=== PATIENT | male | born 1985 | race Caucasian/White ===

== ENCOUNTER 2018-06-10 15:12 | Emergency (ER) | payer OTHER ==
[2018-06-10] MEDS: morphine 4 MG/ML VIAL IV (17:19)
[2018-06-10] MEDS: ONDANSETRON 4 MG INJ IV (17:19)
[2018-06-10 17:25] LABS: ADD MAN DIFF? NO
[2018-06-10 17:26] LABS: BASOPHILS % 0.7 % (0.0-2.0); EOSINOPHILS # 0.1 10^3/ul (0.0-0.5); EOSINOPHILS % 1.6 % (0.0-7.0); HEMATOCRIT 41.9 % (42.0-52.0); HEMOGLOBIN 14.5 g/dl (14.0-18.0); LYMPHOCYTES # 1.5 10^3/ul (0.8-2.9); LYMPHOCYTES % 32.3 % (15.0-51.0); MEAN CORPUSCULAR HEMOGLOBIN 30.9 pg (29.0-33.0); MEAN CORPUSCULAR HGB CONC 34.6 g/dl (32.0-37.0); MEAN CORPUSCULAR VOLUME 89.1 fl (82.0-101.0); MEAN PLATELET VOLUME 9.5 fl (7.4-10.4); MONOCYTE # 0.4 10^3/ul (0.3-0.9); MONOCYTES % 7.8 % (0.0-11.0); NEUTROPHIL # 2.6 10^3/ul (1.6-7.5); NEUTROPHILS % 57.4 % (39.0-77.0); PLATELET COUNT 239 10^3/UL (140-415); RED CELL DISTRIBUTION WIDTH 12.9 % (11.5-14.5)
[2018-06-10 17:26] LABS: WHITE BLOOD COUNT 4.5 10^3/ul (4.8-10.8)
[2018-06-10 17:46] LABS: ADD UMIC NO; ALANINE AMINOTRANSFERASE 11 IU/L (13-69); ALBUMIN 4.9 g/dl (3.3-4.9); ALBUMIN/GLOBULIN RATIO 1.75; ALKALINE PHOSPHATASE 46 IU/L (42-121); ANION GAP 13 (5-13); ASPARTATE AMINO TRANSFERASE 20 IU/L (15-46); BLOOD UREA NITROGEN 14 mg/dl (7-20); CALCIUM 9.8 mg/dl (8.4-10.2); CARBON DIOXIDE 29 mmol/L (21-31); CHLORIDE 102 mmol/L (97-110); CREATININE 0.91 mg/dl (0.61-1.24); Estimated GFR > 60 mL/min (>60); GLUCOSE 80 mg/dl (70-220); POTASSIUM 3.9 mmol/L (3.5-5.1); SODIUM 144 mmol/L (135-144); TOTAL PROTEIN 7.7 g/dl (6.1-8.1); UR ASCORBIC ACID 40 mg/dL (NEGATIVE); UR BILIRUBIN (Dip) NEGATIVE (NEGATIVE); UR BLOOD (Dip) NEGATIVE (NEGATIVE); UR CLARITY CLEAR (CLEAR); UR COLOR YELLOW (YELLOW); UR GLUCOSE (Dip) NEGATIVE (NEGATIVE); UR KETONES (Dip) TRACE mg/dL (NEGATIVE); UR LEUKOCYTE ESTERASE (Dip) NEGATIVE Leu/ul (NEGATIVE); UR NITRITE (Dip) NEGATIVE (NEGATIVE); UR SPECIFIC GRAVITY (Dip) 1.021 (1.003-1.030); UR TOTAL PROTEIN (Dip) NEGATIVE (NEGATIVE); UR UROBILINOGEN (Dip) NEGATIVE (NEGATIVE)
[2018-06-10] MEDS: IOHEXOL 300MG/ML 150 ML BTL (18:44)
[2018-06-10] MEDS: SOD CHLORIDE 0.9% 100 ML (18:44)
== END 2018-06-10 19:23 | disposition home or self-care (01) ==
LOC: FTE 19:23
DX: K40.90 Unilateral inguinal hernia, without obstruction or gangrene, not specified as recurrent (principal); I10 Essential (primary) hypertension
CPT/HCPCS: 74177; 76870; 80053; 81003; 85025; 96374; 96375; 99285-25

== ENCOUNTER 2018-06-18 08:13 | Day surgery (SDC) | payer OTHER ==
[2018-06-18] MEDS: SOD CHLORIDE 0.9% 1,000 ML IV (09:00)
[2018-06-18] MEDS: CLINDAMYCIN 600 MG/D5W (PMX) 50 ML IVPB (09:00)
[2018-06-18 09:33] LABS: ADD MAN DIFF? NO
[2018-06-18 09:35] LABS: BASOPHIL # 0.1 10^3/ul (0.0-0.1); EOSINOPHILS # 0.1 10^3/ul (0.0-0.5); EOSINOPHILS % 2.9 % (0.0-7.0); HEMATOCRIT 43.2 % (42.0-52.0); LYMPHOCYTES # 1.7 10^3/ul (0.8-2.9); LYMPHOCYTES % 33.7 % (15.0-51.0); MEAN CORPUSCULAR HGB CONC 34.7 g/dl (32.0-37.0); MEAN CORPUSCULAR VOLUME 89.3 fl (82.0-101.0); MEAN PLATELET VOLUME 9.8 fl (7.4-10.4); MONOCYTE # 0.5 10^3/ul (0.3-0.9); MONOCYTES % 9.2 % (0.0-11.0); NEUTROPHIL # 2.6 10^3/ul (1.6-7.5); PLATELET COUNT 228 10^3/UL (140-415); RED BLOOD COUNT 4.84 10^6/ul (4.70-6.10); RED CELL DISTRIBUTION WIDTH 12.7 % (11.5-14.5)
[2018-06-18 09:35] LABS: WHITE BLOOD COUNT 4.9 10^3/ul (4.8-10.8)
[2018-06-18 09:55] LABS: INR 1.01; PROTIME 13.4 Sec (11.9-14.9)
[2018-06-18 09:56] LABS: PARTIAL THROMBOPLASTIN TIME 29.7 Sec (23.0-35.0)
[2018-06-18 09:57] LABS: ALANINE AMINOTRANSFERASE 13 IU/L (13-69); ALBUMIN/GLOBULIN RATIO 1.66; ALKALINE PHOSPHATASE 52 IU/L (42-121); ANION GAP 8 (5-13); ASPARTATE AMINO TRANSFERASE 21 IU/L (15-46); BILIRUBIN,INDIRECT 2.9 mg/dl (0-1.1); BILIRUBIN,TOTAL 2.9 mg/dl (0.2-1.3); BLOOD UREA NITROGEN 18 mg/dl (7-20); CARBON DIOXIDE 29 mmol/L (21-31); CHLORIDE 104 mmol/L (97-110); CREATININE 1.03 mg/dl (0.61-1.24); Estimated GFR > 60 mL/min (>60); GLUCOSE 86 mg/dl (70-220); POTASSIUM 4.2 mmol/L (3.5-5.1); SODIUM 141 mmol/L (135-144)
[2018-06-18] MEDS ORDERED: PROPOFOL 20 ML (12:34)
[2018-06-18] MEDS ORDERED: LIDOCAINE 2% (SDV) 5 ML INJ (12:34)
[2018-06-18] MEDS ORDERED: MIDAZOLAM 1 MG/ML 2 ML INJ ×2 (12:34→13:46)
[2018-06-18] MEDS ORDERED: ROPIVACAINE 0.5 % 30 ML VIAL (12:47)
[2018-06-18] MEDS ORDERED: CEFAZOLIN 1 GM INJ (13:00)
[2018-06-18] MEDS ORDERED: ONDANSETRON 4 MG INJ ×2 (13:09→13:44)
[2018-06-18] MEDS: POLYMYXIN/BACITRACIN 1L IRRIG (13:17)
[2018-06-18] MEDS ORDERED: MEPERIDINE 25 MG INJ (13:44)
[2018-06-18] MEDS ORDERED: HYDROmorphONE 1 MG/5 ML IV SYRINGE IV ×2 (13:44→14:00)
[2018-06-18] MEDS: MIDAZOLAM 1 MG/ML 2 ML INJ IV (13:59)
[2018-06-18] MEDS: MEPERIDINE 25 MG INJ IV (14:00)
[2018-06-18] MEDS ORDERED: ONDANSETRON 4 MG INJ IV (14:00)
[2018-06-18] MEDS: HYDROmorphONE 1 MG/5 ML IV SYRINGE IV ×3 (14:00→14:48)
[2018-06-18] MEDS ORDERED: OXYCODONE/ACETAMINOPHEN (5/325) TAB PO (14:00)
[2018-06-18] MEDS: OXYCODONE/ACETAMINOPHEN (5/325) TAB PO (14:30)
[2018-06-18] MEDS ORDERED: HYDROmorphONE 0.5 MG/0.5 ML SYG IM (14:35)
[2018-06-18] MEDS ORDERED: KETOROLAC 30 MG INJ (14:44)
[2018-06-18] MEDS: KETOROLAC 30 MG INJ IV (14:48)
[2018-06-18] MEDS: OXYCODONE/ACETAMINOPHEN (10/325) TAB PO (15:43)
== END 2018-06-18 16:20 | disposition home or self-care (01) ==
LOC: SDS 08:13
DX: K40.30 Unilateral inguinal hernia, with obstruction, without gangrene, not specified as recurrent (principal)
CPT/HCPCS: 49507; 80053; 85025; 85610; 85730

== ENCOUNTER 2018-08-02 04:19 | Emergency (ER) | payer OTHER | END 2018-08-02 06:35 | disposition left against medical advice (07) | LOC: FTE 04:19 | DX: R10.31 Right lower quadrant pain (principal); Z76.0 Encounter for issue of repeat prescription; Z98.890 Other specified postprocedural states | CPT/HCPCS: 99282; Z7502 ==

== ENCOUNTER 2018-08-05 10:28 | Emergency (ER) | payer OTHER ==
[2018-08-05] MEDS: ONDANSETRON (ODT) 4 MG TAB ODT (12:04)
[2018-08-05] MEDS: HYDROCODONE/APAP (5/325) TAB PO (12:04)
== END 2018-08-05 12:32 | disposition home or self-care (01) ==
LOC: FTE 10:28
DX: R10.9 Unspecified abdominal pain (principal); I10 Essential (primary) hypertension
CPT/HCPCS: 99283; Z7610

== ENCOUNTER 2018-08-13 08:11 | Inpatient (IN) | payer OTHER ==
[2018-08-13 08:32] LABS: ADD MAN DIFF? NO
[2018-08-13 08:34] LABS: WHITE BLOOD COUNT 20.8 10^3/ul (4.8-10.8)
[2018-08-13 08:34] LABS: BASOPHIL # 0.1 10^3/ul (0.0-0.1); BASOPHILS % 0.4 % (0.0-2.0); HEMATOCRIT 45.1 % (42.0-52.0); HEMOGLOBIN 16.1 g/dl (14.0-18.0); LYMPHOCYTES # 1.2 10^3/ul (0.8-2.9); LYMPHOCYTES % 5.9 % (15.0-51.0); MEAN CORPUSCULAR HEMOGLOBIN 31.1 pg (29.0-33.0); MEAN CORPUSCULAR HGB CONC 35.7 g/dl (32.0-37.0); MEAN CORPUSCULAR VOLUME 87.2 fl (82.0-101.0); MEAN PLATELET VOLUME 9.8 fl (7.4-10.4); MONOCYTE # 1.2 10^3/ul (0.3-0.9); MONOCYTES % 5.9 % (0.0-11.0); NEUTROPHIL # 18.1 10^3/ul (1.6-7.5); NEUTROPHILS % 87.3 % (39.0-77.0); PLATELET COUNT 276 10^3/UL (140-415); RED BLOOD COUNT 5.17 10^6/ul (4.70-6.10); RED CELL DISTRIBUTION WIDTH 12.1 % (11.5-14.5)
[2018-08-13 08:55] LABS: INR 1.01; PROTIME 13.4 Sec (11.9-14.9)
[2018-08-13 08:56] LABS: PARTIAL THROMBOPLASTIN TIME 28.7 Sec (23.0-35.0)
[2018-08-13] MEDS: SOD CHLORIDE 0.9% 1,000 ML IV ×3 (08:59→19:55)
[2018-08-13] MEDS: HYDROmorphONE 1 MG/ML SYG IV ×3 (09:00→19:46)
[2018-08-13] MEDS: ONDANSETRON 4 MG INJ IV (09:00)
[2018-08-13 09:01] LABS: ALANINE AMINOTRANSFERASE 48 IU/L (13-69); ALBUMIN 5.3 g/dl (3.3-4.9); ALBUMIN/GLOBULIN RATIO 1.65; ALKALINE PHOSPHATASE 70 IU/L (42-121); ANION GAP 16 (5-13); ASPARTATE AMINO TRANSFERASE 97 IU/L (15-46); BILIRUBIN,INDIRECT 2.4 mg/dl (0-1.1); BILIRUBIN,TOTAL 2.4 mg/dl (0.2-1.3); BLOOD UREA NITROGEN 16 mg/dl (7-20); CARBON DIOXIDE 22 mmol/L (21-31); CHLORIDE 104 mmol/L (97-110); CREATININE 0.99 mg/dl (0.61-1.24); Estimated GFR > 60 mL/min (>60); GLUCOSE 53 mg/dl (70-220); SODIUM 142 mmol/L (135-144); TOTAL PROTEIN 8.5 g/dl (6.1-8.1)
[2018-08-13] MEDS ORDERED: hydrALAzine 20 MG INJ IV (11:30)
[2018-08-13] MEDS ORDERED: ACETAMINOPHEN 1000MG/100ML IV 100 ML IVPB (11:30)
[2018-08-13] MEDS: D5W-0.45 NACL + KCL 20 MEQ 1,000 ML IV (11:45)
[2018-08-13] MEDS ORDERED: MIDAZOLAM 1 MG/ML 2 ML INJ (16:39)
[2018-08-13] MEDS ORDERED: LIDOCAINE 2% (SDV) 5 ML INJ (17:25)
[2018-08-13] MEDS ORDERED: PROPOFOL 20 ML (17:25)
[2018-08-13] MEDS ORDERED: GLYCOPYRROLATE 0.4 MG INJ (17:25)
[2018-08-13] MEDS ORDERED: CEFAZOLIN 1 GM INJ (17:25)
[2018-08-13] MEDS ORDERED: NEOSTIGMINE 3 MG/3 ML SYRINGE (17:25)
[2018-08-13] MEDS ORDERED: ROCURONIUM 50 MG INJ (17:25)
[2018-08-13] MEDS ORDERED: ONDANSETRON 4 MG INJ (17:26)
[2018-08-13] MEDS: BUPIVACAINE 0.25% (MPF) 30 ML INJ (17:29)
[2018-08-13] MEDS: POLYMYXIN/BACITRACIN 1L IRRIG (17:29)
[2018-08-13] MEDS ORDERED: HYDROmorphONE 1 MG/5 ML IV SYRINGE IV ×2 (17:57→18:00)
[2018-08-13] MEDS ORDERED: METOCLOPRAMIDE 10 MG INJ IV (18:00)
[2018-08-13] MEDS ORDERED: KETOROLAC 30 MG INJ IV (18:00)
[2018-08-13] MEDS ORDERED: ONDANSETRON 4 MG INJ IV (18:00)
[2018-08-13] MEDS ORDERED: MIDAZOLAM 1 MG/ML 2 ML INJ IV (18:00)
[2018-08-13] MEDS ORDERED: DIPHENHYDRAMINE 50 MG INJ IV (18:00)
[2018-08-13] MEDS ORDERED: MEPERIDINE 25 MG INJ (18:02)
[2018-08-13] MEDS: MEPERIDINE 25 MG INJ IV (18:03)
[2018-08-13] MEDS: HYDROmorphONE 1 MG/5 ML IV SYRINGE IV ×2 (18:04→18:09)
[2018-08-13] MEDS: LORAZEPAM 2 MG INJ IV (18:07)
[2018-08-13] MEDS: FENTAnyl 50 MCG/ML VIAL IV ×3 (18:14→18:29)
[2018-08-13 18:29] LABS: ADD MAN DIFF? NO
[2018-08-13 18:30] LABS: BASOPHILS % 0.3 % (0.0-2.0); HEMATOCRIT 40.1 % (42.0-52.0); HEMOGLOBIN 14.1 g/dl (14.0-18.0); LYMPHOCYTES # 1.1 10^3/ul (0.8-2.9); LYMPHOCYTES % 13.6 % (15.0-51.0); MEAN CORPUSCULAR HEMOGLOBIN 31.2 pg (29.0-33.0); MEAN CORPUSCULAR HGB CONC 35.2 g/dl (32.0-37.0); MEAN CORPUSCULAR VOLUME 88.7 fl (82.0-101.0); MEAN PLATELET VOLUME 9.6 fl (7.4-10.4); MONOCYTE # 0.8 10^3/ul (0.3-0.9); MONOCYTES % 10.3 % (0.0-11.0); NEUTROPHILS % 75.5 % (39.0-77.0); PLATELET COUNT 204 10^3/UL (140-415); RED BLOOD COUNT 4.52 10^6/ul (4.70-6.10); RED CELL DISTRIBUTION WIDTH 12.1 % (11.5-14.5)
[2018-08-13 18:30] LABS: WHITE BLOOD COUNT 7.9 10^3/ul (4.8-10.8)
[2018-08-13] MEDS: KETOROLAC 30 MG INJ IV (18:41)
[2018-08-13] MEDS: DIAZEPAM 5 MG TAB PO (18:55)
[2018-08-14] MEDS: HYDROmorphONE 1 MG/ML SYG IV ×7 (00:23→21:47)
[2018-08-14] MEDS: OXYCODONE/ACETAMINOPHEN (10/325) TAB PO ×5 (02:14→20:24)
[2018-08-14] MEDS: SOD CHLORIDE 0.9% 1,000 ML IV ×3 (03:31→20:24)
[2018-08-14] MEDS: ONDANSETRON 4 MG INJ IV ×2 (03:38→09:45)
[2018-08-14] MEDS: HYDROmorphONE 0.5 MG/0.5 ML SYG IV (06:32)
[2018-08-15] MEDS: OXYCODONE/ACETAMINOPHEN (10/325) TAB PO ×3 (00:30→10:10)
[2018-08-15] MEDS: HYDROmorphONE 1 MG/ML SYG IV ×7 (01:28→21:59)
[2018-08-15] MEDS: SOD CHLORIDE 0.9% 1,000 ML IV ×2 (06:06→17:02)
[2018-08-15] MEDS: ONDANSETRON 4 MG INJ IV ×2 (09:26→16:01)
[2018-08-15] MEDS: METOCLOPRAMIDE 10 MG INJ IV (18:39)
[2018-08-15] MEDS: PANTOPRAZOLE 40 MG INJ IV (21:59)
[2018-08-16] MEDS: HYDROmorphONE 1 MG/ML SYG IV ×7 (02:48→22:52)
[2018-08-16] MEDS: ONDANSETRON 4 MG INJ IV ×2 (02:58→16:19)
[2018-08-16] MEDS: OXYCODONE/ACETAMINOPHEN (10/325) TAB PO ×2 (04:55→09:01)
[2018-08-16] MEDS: METOCLOPRAMIDE 10 MG INJ IV ×3 (04:55→22:56)
[2018-08-16] MEDS: SOD CHLORIDE 0.9% 1,000 ML IV (05:59)
[2018-08-16] MEDS: PANTOPRAZOLE 40 MG INJ IV ×2 (08:50→21:11)
[2018-08-17] MEDS: HYDROmorphONE 1 MG/ML SYG IV ×4 (02:12→17:11)
[2018-08-17] MEDS: OXYCODONE/ACETAMINOPHEN (10/325) TAB PO ×2 (04:16→13:42)
[2018-08-17] MEDS: ONDANSETRON 4 MG INJ IV (06:15)
[2018-08-17] MEDS: PANTOPRAZOLE 40 MG INJ IV (08:02)
== END 2018-08-17 18:25 | disposition home or self-care (01) | DRG 352 ==
LOC: E/R 08:11 → PP2 08:42
PROC: 0YU50JZ Supplement Right Inguinal Region with Synthetic Substitute, Open Approach (ICD-10-PCS; principal; 2018-08-13 16:00)
DX: K40.91 Unilateral inguinal hernia, without obstruction or gangrene, recurrent (principal); I10 Essential (primary) hypertension; K21.9 Gastro-esophageal reflux disease without esophagitis; E78.5 Hyperlipidemia, unspecified; F41.8 Other specified anxiety disorders
CPT/HCPCS: 36415; 80053; 85025; 85610; 85730; 99217; 99285-25